=== PATIENT | female | born 1985 | race Caucasian/White ===

== ENCOUNTER 2023-04-07 02:26 | Emergency (ER) | payer OTHER ==
[2023-04-07 02:35] VITALS: BMI 24.9
[2023-04-07] MEDS ORDERED: ACETAMINOPHEN 325 MG TABLET (FP) PO ONE (03:04)
[2023-04-07] MEDS ORDERED: ACETAMINOPHEN 325 MG TABLET (FP) ONE (03:33)
[2023-04-07 03:55] LABS: BASO % 0.4 % (0-2.0); EOS % 1.3 % (0-4.5); HEMATOCRIT 38.4 % (32.4-45.2); HEMOGLOBIN 12.9 GM/dL (10.7-15.3); LYMPH % 21.8 % (8-40); MCH 30.8 pg (25.7-33.7); MCHC 33.7 g/dl (32.0-36.0); MEAN CELL VOLUME 91.3 fl (80-96); MEAN PLT VOLUME 7.8 fl (7.5-11.1); MONO % 8.4 % (3.8-10.2); NEUT % 68.1 % (42.8-82.8); PLATELET COUNT 242 10^3/uL (134-434); RDW 13.5 % (11.6-15.6); WHITE BLOOD COUNT 9.1 K/mm3 (4.0-10.0)
[2023-04-07 04:12] LABS: POTASSIUM 3.5 mmol/L (3.5-5.1)
[2023-04-07 04:14] LABS: CALCIUM 8.5 mg/dL (8.5-10.1)
[2023-04-07 04:15] LABS: ALBUMIN 3.7 g/dl (3.4-5.0); BLOOD UREA NITROGEN 11.9 mg/dL (7-18)
[2023-04-07 04:18] LABS: CREATININE 0.9 mg/dL (0.55-1.3)
[2023-04-07 04:20] LABS: BILIRUBIN,TOTAL 0.3 mg/dL (0.2-1); TOT PROT 6.6 g/dl (6.4-8.2)
[2023-04-07] MEDS ORDERED: KETOROLAC TROMETHAMINE 30 MG/1 ML VIAL IVPUSH ONE (04:53)
[2023-04-07] MEDS ORDERED: KETOROLAC TROMETHAMINE 30 MG/1 ML VIAL ONE (05:10)
[2023-04-07 08:35] VITALS: BP 112/70; PULSE 62; RESP 14; TEMP 98
== END 2023-04-07 07:39 | disposition home or self-care (01) ==
LOC: JER 02:26
PROC: 3E033NZ Introduction of Analgesics, Hypnotics, Sedatives into Peripheral Vein, Percutaneous Approach (ICD-10-PCS; principal; 2023-04-07)
DX: R07.81 Pleurodynia (principal); M79.10 Myalgia, unspecified site
CPT/HCPCS: 36415; 71045-TC-FY; 80053; 84484; 84703; 85025; 93005; 93010; 99285-25